=== PATIENT | female | born 1945 | race Caucasian/White ===

== ENCOUNTER 2024-12-26 18:29 | Emergency (ER) | payer MEDICARE, SELFPAY ==
[2024-12-26 18:30] VITALS: BP 181/94
[2024-12-26 21:43] VITALS: BP 148/74
--- NOTE | 2024-12-26 21:58 | ED.GENMED ---
History of Present Illness
General
Chief Complaint: Fall
Source: patient
Exam Limitations: none
Time Seen by Provider: 12/26/24 21:13
Nursing documentation reviewed up to this point in time: agreed with
History of Present Illness
History of Present Illness:
Patient states she tripped and fell while walking into a restaurant. Hit head on funiture. No LOC. Sustained large lac to left eyebrow. Incident occurred just [employer]. Brought to ED by daughter for evalo
Past History
Past History
ED Past Medical History: None
Review of Systems
Review of Systems
Allergies reviewed?: Yes
All Other Systems: ROS reviewed and negative except as documented in HPI and ROS
Constitutional: Reports no symptoms
EENT: Reports no symptoms
Respiratory: Reports no symptoms
Cardiac: Reports no symptoms
ABD/GI: Reports no symptoms
Musculoskeletal: Reports no symptoms
Skin: Reports other (Laceration to left eyebrow)
Neurological: Reports no symptoms
Psychiatric: Reports no symptoms
Phy Exam
General Physical Exam
General Presentation: well appearing and no apparent distress
General age: appears stated age
General Skin: warm and dry
General Habitus: normal
General Mental: alert
Neurological Exam
Neurological Exam: alert, oriented x3, CN II-XII intact, no motor deficits, no sensory deficits and speech normal
Navjot Coma Scale
Eye Opening: Spontaneous
Verbal Response: Oriented
Motor Response: Obeys Commands
GCS Total Score: 15
Musculoskeletal Exam
Musculoskeletal Exam: full ROM and neuro vasc intact
Skin Exam
Skin Exam: normal color, warm/dry and no rash
Psychiatric Exam
Psychiatric Exam: normal mood/affect
Course
Orders/Labs/Results
Orders:
Orders
12/26/24 21:58
CT Head W/o Iv Contrast Urgent
Comment:
Reason For Exam: trauma
Tetanus/Diphth/Acelpertussis [Adacel] 0.5 ml IM .ONCE ONE
Vital Signs
Initial and Last Documented VS:
Initial Vital Signs
Temp Pulse Resp BP Pulse Ox
98 F 98 17 181/94 99
12/26/24 18:30 12/26/24 18:30 12/26/24 18:30 12/26/24 18:30 12/26/24 18:30
Last Documented Vital Signs
Temp Pulse Resp BP Pulse Ox
98 F 84 16 148/74 98
12/26/24 18:30 12/26/24 21:43 12/26/24 21:43 12/26/24 21:43 12/26/24 21:43
Procedures
Laceration Closure
Left Eye brow:
Status of Wound: clean
Description of Wound Edges: sharp
Preparation: cleaned with saline
Anesthesia: 1% Lidocaine
Revision/Debridement: routine- no revision
Wound exploration: explored to base- no FB
Type of Closure: layered closure
Skin Closure Material: 6-0 prolene and 5-0 chromic gut
*Radiology
Radiology exam reviewed: radiology read reviewed
*Pulse Oximetry
Patient hypoxic: no
*Critical Care Note
Total Time (30-74mins, 75-104mins- exclusive of procedures): Not Applicable
ED Attending Note
-
Portions of this chart may have been created with voice recognition software.� Occasional wrong word or��sound alike� substitutions may have occurred due to the inherent limitations of voice recognition software.
Discharge Plan
Departure
Patient Disposition: Home (Routine Discharge)
Date of Disposition: 12/26/24
Time of Disposition: 22:43
Patient with high blood pressure during this ER visit?: No
Condition: Good
Covid-19: Not Applicable
Discharge Problem:
Head injury
Instructions: Head Injury in Adults (DC), Laceration Repair With Stitches (DC), Preventing falls in adults
Referrals:
[facility] [Other]
Activity Restrictions/Additional Instructions:
Sutures can be removed in 5-7 days by your family doctor. Keep wound clean and dry. Apply small amount of antibiotic ointment (bacitracin or neosporin) daily.
Interventions
Interventions:
*Risk Screen - Suicide Last Done: 12/26/24 18:33
*General Assessment Last Done: 12/26/24 18:33
*Neglect/Abuse Screening Last Done: 12/26/24 18:33
ED- Fall Risk Assessment Last Done: 12/26/24 19:29
*ED COVID-19 Vaccine History Last Done: 12/26/24 18:33
*Nursing Disposition Last Done: 12/26/24 22:45
ED-Musculoskeletal Assessment Last Done: 12/26/24 19:29
ED- Neurological Assessment Last Done: 12/26/24 19:29
ED-Skin Assessment Last Done: 12/26/24 19:29
Discharge Date and Time
Discharge Date/Time: 12/26/24 22:49
Print Language: THAI
Skin Exam
Laceration
Left Eye brow:
Length in cm: 3
Orientation: horizontal
Type of Laceration: layered
Any active bleeding?: low grade venous oozing
Distal skin color and temperature: normal-warm & good color
Normal distal neurovascular exam: Yes
Range of motion: full
[2024-12-26] MEDS: ADACEL 0.5 ML IM (22:01)
== END 2024-12-26 22:49 | disposition home or self-care (01) ==
LOC: EMR 18:29
PROVIDERS: EMERGENCY PHYSICIAN Emergency Medicine
DX: S01.112A Laceration without foreign body of left eyelid and periocular area, initial encounter (principal); W01.0XXA Fall on same level from slipping, tripping and stumbling without subsequent striking against object, initial encounter
CPT/HCPCS: 12052; 90471; 99284; 70450; 90715